=== PATIENT | male | born 1990 | race Caucasian/White ===

== ENCOUNTER 2017-04-26 01:19 | Emergency (ER) | payer BC ==
[2017-04-26] MEDS ORDERED: HYDROmorphone HCL 2 MG/ML VIAL SC ONE (01:38)
[2017-04-26] MEDS ORDERED: HYDROmorphone HCL 2 MG/ML VIAL ONE (01:39)
[2017-04-26] MEDS ORDERED: KETOROLAC TROMETHAMINE 30 MG/ML VIAL IM ONE (01:39)
[2017-04-26] MEDS ORDERED: KETOROLAC TROMETHAMINE 30 MG/ML VIAL ONE (01:40)
--- NOTE | 2017-04-26 01:45 | ERNOTE ---
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 The patient states that he walks quite frequently on concrete. He recently had a 24-hour shift. The patient comes to the emergency department at 1:30 in the morning complaining of severe back pain. The patient states that he has had back pain now for 4 days. He denies any trauma or any eliciting activity which triggered this. He denies any loss of control of his bowel or bladder. He denies any muscular weakness. He denies any numbness or tingling the patient states that this evening he felt like his back "locked up" and he fell. He did not hit his head. He did not lose consciousness. He was able to get back up. Again the patient has never had any back problems although he was told when he was younger that he would probably have back problems due to being a premature infant. No help with ibuprofen. Review of Systems - Review of Systems Constitutional: Present: no symptoms reported. Absent: recent illness, fever, diaphoresis, weakness, fatigue, malaise, weight loss EYE: Present: no symptoms reported. Absent: eye pain, double vision ENT: Present: no symptoms reported. Absent: nose pain, sore throat Respiratory: Present: no symptoms reported. Absent: shortness of breath, cough , wheezing Cardiology: Present: no symptoms reported. Absent: chest pain, palpitations, syncope Gastrointestinal/Abdominal: Present: no symptoms reported. Absent: constipation , abdominal pain Genitourinary: Present: no symptoms reported Musculoskeletal: Present: no symptoms reported Skin: Present: no symptoms reported Neurological: Present: See HPI. Absent: anxiety, depressed, emotional problems , headache, dizziness/light-headedness, seizure, weakness, numbness, tingling, tremors, pre-existing deficit, other Endocrine: Present: no symptoms reported Hematologic/Lymphatic: Present: no symptoms reported Psych: Present: no symptoms reported All Other Systems: All systems neg except as marked - Patient's Past Medical History Patient History - Medical: No pertinent hx Patient History - Cardiac/Respiratory: No pertinent hx Patient History - Cancer: No Hx of Cancer Patient History - Surgical Procedures: Ear Tubes, Other, Orthopedic Patient History - Other: None - Social History Living Situations: home Abuse History: No History of abuse Psych History: No pertinent hx Smoking Status: Former smoker Alcohol Use: sober Drug Use: marijuana - Immunizations Immunizations Up to Date: Yes History of Influenza Vaccine: No Physical Exam - Physical Exam General Appearance: Present: wd/wn, alert, moderate distress, other - patient is grimacing, unable to sit down due to discomfort. Head Exam: Present: normal inspection, no evidence of injury Eye Exam: Normal inspection: bilateral, PERRL: bilateral, EOMI: bilateral Ears, Nose, Throat: Present: normal ENT inspection, normal except - Neck: Present: normal inspection, nontender Respiratory: Present: no respiratory distress, normal breath sounds, no accessory muscle use, chest nontender, lungs clear Cardiovascular/Chest: Present: no murmur, normal peripheral pulses Peripheral Pulses: N=norm/S=strong/W=weak/B=bound/A=absent: Radial (R): Normal, Radial (L): Normal, Femoral (R): Normal, Femoral (L): Normal Gastrointestinal/Abdominal: Present: normal bowel sounds, nontender, nondistended, soft, no organomegaly Rectal Exam: Present: nontender, normal rectal tone, other - the patient has normal rectal tone. Male Genitals Exam: Present: normal genitalia, no hernia, other - patient has normal cremasteric reflexes. Back Exam: Present: normal inspection, vertebral tenderness, other - patient has significant tenderness from the mid thoracic down to the upper lumbar vertebrae. These are midline discomfort. He does not appear to have paraspinal tenderness. He has significant tenderness with lateral flexion as well as forward flexion and extension.. Absent: normal range of motion, no CVA tenderness, no vertebral tenderness Extremity Exam: Present: normal inspection, non-tender, normal range of motion, no edema Neurological Exam: Present: alert, oriented, normal mood/affect, no motor/ sensory deficits, other - strength is 5 out of 5 in all major muscle groups of the lower extremity. Reflexes are 1+ bilateral knees. Strength is 5 out of 5 in upper extremities. ED Progress - Vital Signs Patient's Vital Signs:: I have reviewed the patient's vital signs. Vital Signs: Vital Signs 04/26/17 01:23 Temperature 36.8 C Pulse Rate 115 H Respiratory 16 Rate Blood Pressure 148/98 O2 Sat by Pulse 96 Oximetry - CT/Ultrasound CT/Ultrasound Narrative: No sign of fracture or other osseous abnormality - Progress/Reassessment Chief Complaint: Back Pain Plan - Plan Plan: This is a 27-year-old male with no real significant past medical history coming in with 4 days of fairly severe back pain. It does not localize to a single level, it appears to transverse from mid thoracic to upper lumbar. It is definitely in the midline and not paraspinal. He did have a fall today, but he was hurting just as much prior to falling. He does not inject drugs. He has not had a fever. He has no neurologic deficits. I am going to obtain his CAT scan of his thoracic spine to ensure that there is nothing insidious going on. The patient has gotten excellent relief with 2 mg of Dilaudid subcutaneously. He is able to walk without difficulty. I had a lengthy conversation with him regarding taking it usually on his back. He works as a computer security specialist, and he walks on a concrete floor. He sometimes does this for up to 24 hours straight. He does wear a heavy belt. He is overweight. He does not have a family doctor. We discussed the importance of getting a family doctor. I'm instructing him to take ibuprofen, 600 mg every 6 hours for at least 5 days. I'm also giving him a prescription for 5/325 mg [place]. He is to take one every 4-6 hours as needed for severe pain. He is counseled not to drive or operate machinery. I'm sending him home with 2 tablets. If the patient develops any new worrisome symptoms he will return to the ER. The patient's mother was present in the room during the entire conversation and also is aware of the concerning symptoms. Departure Clinical Impression: Lumbago - Departure Disposition: Home self-care Condition: Stable Instructions: Back Pain, Adult Additional Instructions: Take the prescribed medicine for pain. Do not drive or operate machinery while taking hydrocodone. I want you to take 3 tablets of ibuprofen, this is a total of 600 mg. Take this every 6 hours whether he feels like it is helping or not. Do this for at least 5 days. They should help with inflammation. You need to call and set up an appointment with the family doctor. If any of the symptoms which we discussed previously develop you need to return immediately to the emergency department. I've written a note to be off of work for up to 3 days. If you need further time off work he will need to call her family doctor or have a note other physician write a note. Prescriptions: HYDROcodone/ACETAMINOPHEN [[place] 5-325] 1 each PO Q4H PRN #12 tablet PRN Reason: Pain Ibuprofen [Motrin] 600 mg PO TID PRN #30 tab PRN Reason: Pain
[2017-04-26] MEDS ORDERED: HYDROcodone/ACETAMINOPHEN 1 EACH TABLET PO ONE (02:28)
[2017-04-26] MEDS ORDERED: HYDROcodone/ACETAMINOPHEN 1 EACH TABLET ONE (02:30)
--- OUTSIDE RECORDS SUMMARY | 2017-04-26 02:37 | XMS REPORT | Clinical Summary ---
:1990 Author Organization [place] [address] Care Team Providers Name Role Phone Unavailable Primary Care Provider Unavailable Source Comments This disclosure is being made pursuant to the [employer] program and maynot contain all information available regarding this patient.[facility] Allergies Not on File Current Medications Be aware that medications may not be up to date as of this document. Alwaysverify current medications with the patient. Not on file Active Problems Not on file Social History Tobacco Use Types Packs/Day Years Used Date Never Assessed Sex Assigned at Date Recorded Not on file Last Filed Vital Signs Not on file Plan of Treatment Health Maintenance Due Date Last Done Comments Tetanus/Pertussis (1 - Tdap) 2009 INFLUENZA IMMUNIZATION (#1) 2017 Results Not on filefrom Last 3 Months
[2017-04-26 16:34] VITALS: BP 137/89
== END 2017-04-26 02:50 | disposition home or self-care (01) ==
LOC: ER 01:19
DX: M54.5 Low back pain (principal); Z87.891 Personal history of nicotine dependence